=== PATIENT | female | born 1960 | race Caucasian/White ===

== ENCOUNTER → 2017-01-09 | Outpatient (CLI) | payer BC | LOC: BHSO 13:18 | DX: F41.1 Generalized anxiety disorder (principal) | CPT/HCPCS: 90791-AI ==

== ENCOUNTER → 2017-02-06 | Outpatient (CLI) | payer BC | LOC: BHSO 15:16 | DX: F41.1 Generalized anxiety disorder (principal) | CPT/HCPCS: G0463 ==

== ENCOUNTER → 2017-03-14 | Outpatient (CLI) | payer BC | LOC: BHSO 13:56 | DX: F41.1 Generalized anxiety disorder (principal) | CPT/HCPCS: G0463 ==

== ENCOUNTER → 2017-04-08 | Outpatient (CLI) | payer BC | LOC: BHSO 14:32 | DX: F33.0 Major depressive disorder, recurrent, mild (principal) ==

== ENCOUNTER → 2017-05-06 | Outpatient (CLI) | payer BC | LOC: BHSO 13:16 | DX: F33.2 Major depressive disorder, recurrent severe without psychotic features (principal) | CPT/HCPCS: G0463 ==

== ENCOUNTER → 2017-05-09 | Outpatient (CLI) | payer BC | LOC: BHSO 12:50 | DX: F41.1 Generalized anxiety disorder (principal) ==

== ENCOUNTER → 2017-05-22 | Outpatient (CLI) | payer BC | LOC: BHSO 10:48 | DX: F41.1 Generalized anxiety disorder (principal) ==

== ENCOUNTER → 2017-06-04 | Outpatient (CLI) | payer BC | LOC: BHSO 10:37 | DX: F33.41 Major depressive disorder, recurrent, in partial remission (principal) | CPT/HCPCS: G0463 ==

== ENCOUNTER → 2017-06-20 | Outpatient (CLI) | payer BC | LOC: BHSO 10:58 | DX: F41.1 Generalized anxiety disorder (principal) ==

== ENCOUNTER → 2017-06-26 | Outpatient (CLI) | payer BC | LOC: BHSO 10:53 | DX: F41.1 Generalized anxiety disorder (principal) ==

== ENCOUNTER → 2017-07-11 | Outpatient (CLI) | payer BC | LOC: BHSO 11:01 | DX: F41.1 Generalized anxiety disorder (principal) ==

== ENCOUNTER → 2017-07-25 | Outpatient (CLI) | payer BC | LOC: BHSO 10:55 | DX: F41.1 Generalized anxiety disorder (principal) ==

== ENCOUNTER → 2017-08-08 | Outpatient (CLI) | payer BC | LOC: BHSO 10:51 | DX: F33.1 Major depressive disorder, recurrent, moderate (principal) ==

== ENCOUNTER → 2017-08-22 | Outpatient (CLI) | payer BC | LOC: BHSO 10:43 | DX: F41.1 Generalized anxiety disorder (principal) ==

== ENCOUNTER → 2017-08-28 | Outpatient (CLI) | payer BC | LOC: BHSO 10:52 | DX: F33.42 Major depressive disorder, recurrent, in full remission (principal) | CPT/HCPCS: G0463 ==

== ENCOUNTER → 2017-09-17 | Outpatient (CLI) | payer BC | LOC: BHSO 10:45 | DX: F33.1 Major depressive disorder, recurrent, moderate (principal) ==

== ENCOUNTER → 2017-10-03 | Outpatient (CLI) | payer BC | LOC: BHSO 11:02 | DX: F33.2 Major depressive disorder, recurrent severe without psychotic features (principal) ==

== ENCOUNTER → 2017-10-31 | Outpatient (CLI) | payer BC | LOC: BHSO 10:56 | DX: F33.2 Major depressive disorder, recurrent severe without psychotic features (principal) ==